=== PATIENT | male | born 1950 | race Caucasian/White ===

== ENCOUNTER 2019-11-27 13:48 | Outpatient (CLI) | payer MEDICARE | END 2019-11-27 13:49 | disposition home or self-care (01) | LOC: RT 13:48 | PROVIDERS: ATTEND Internal Medicine Cardiovascular Disease | DX: R00.0 Tachycardia, unspecified (principal) | CPT/HCPCS: 93005 ==

== ENCOUNTER 2024-03-22 06:33 | Outpatient (CLI) | payer MEDICARE | END 2024-03-22 23:59 | disposition critical access hospital (66) | LOC: EMS 06:33 | DX: R58 Hemorrhage, not elsewhere classified (principal); Z79.01 Long term (current) use of anticoagulants | CPT/HCPCS: A0425; A0429 ==

== ENCOUNTER 2024-03-22 07:01 | Emergency (ER) | payer BC, MEDICARE ==
[2024-03-22] MEDS: TRANEXAMIC ACID 1,000 MG/10 ML VIAL NAS STA (07:16)
--- NOTE | 2024-03-22 07:33 | ED Physician Documentation ---
History of Present Illness - Stated complaint Stated Complaint: BLEEDING SUTURES - Chief complaint Chief Complaint: Laceration - History obtained from History obtained from: Patient, Family - History of Present Illness Timing: Today - Additonal information Additional information: Jack Rod is a 73-year-old male with a history of hypertension and atrial fibrillation who is on Xarelto. 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 He had his sutures removed a week ago and he developed some swelling which resulted this morning in bleeding coming from 1 portion of the wound. He is continuing to have bleeding and is brought to the hospital by ambulance. Review of Systems Constitutional: denies: Fever Nose: denies: Congestion Throat: denies: Sore throat Respiratory: denies: Cough GI: denies: Vomiting, Diarrhea Skin: reports: Laceration (s) Musculoskeletal: denies: Neck pain, Back pain, Extremity pain PD PAST MEDICAL HISTORY - Past Medical History Past Medical History: Yes Cardiovascular: Hypertension, Atrial fibrillation Respiratory: None Neuro: None Endocrine/Autoimmune: None GI: None : None HEENT: None Psych: None Musculoskeletal: None Derm: None Other Past Medical History: skin cancer - Past Surgical History Past Surgical History: Yes Cardiovascular: Other - Present Medications Home Medications: Ambulatory Orders Medication Instructions Recorded Confirmed Flecainide [Tambocar] 50 mg PO DAILY 03/22/24 03/22/24 Lisinopril [Zestril] 20 mg PO DAILY 03/22/24 03/22/24 Rivaroxaban [Xarelto] 10 mg PO DAILY 03/22/24 03/22/24 - Allergies Allergies/Adverse Reactions: Allergies Allergy/AdvReac Type Severity Reaction Status Date / Time No Known Drug Allergies Allergy Verified 03/22/24 07:12 - Social History Does the pt smoke?: No Smoking Status: Never smoker Does the pt drink ETOH?: No Does the pt have substance abuse?: No - Immunizations Immunizations are current?: Yes - POLST Patient has POLST: No PD ED PE NORMAL - Vitals Vital signs reviewed: Yes (hypertensive ) - General General: Alert and oriented X 3, No acute distress, Well developed/nourished - HEENT HEENT: PERRL, EOMI, Other (There is a recent surgical site on the left forehead at the hairline that appears well healed with the exception of the upper portion of the wound which is oozing blood. Pressure applied cephalad from the wound resolves bleeding. ) - Neck Neck: Supple, no meningeal sign - Respiratory Respiratory: No respiratory distress - Derm Derm: Normal color, Warm and dry, No rash - Extremities Extremities: No deformity, No edema - Neuro Neuro: Alert and oriented X 3, ore sampler 2-12 intact, No motor deficit, No sensory deficit, Normal speech Eye Opening: Spontaneous Motor: Obeys Commands Verbal: Oriented GCS Score: 15 - Psych Psych: Normal mood, Normal affect Results - Vitals Vitals: Vital Signs - 24 hr 03/22/24 03/22/24 07:08 08:31 Temperature 36.9 C Heart Rate 76 68 Respiratory 18 20 Rate Blood Pressure 171/81 H 161/81 H O2 Saturation 98 100 Oxygen O2 Source Room air Procedures - Laceration (location) forehead Length in cm: 1 Wound type: Clean, Other (wound margin) Neurovascular status: Sensory intact, Motor intact, Vascular intact Anesthesia: Lidocaine 1% Wound preparation: Hibiclens, Irrigated copiously NS Skin layer closure: Nylon, Interrupted, Size #-0 - enter number (5-0), Sutures - enter # (2), Other (sutures placed above the terminus of the surgical wound controlled bleeding a second suture placed over the open portion of the distal wound.) Other: Patient tolerated well, No complications, Neurovascular intact, Tetanus UTD PD Medical Decision Making - ED course Complexity details: re-evaluated patient, considered differential, d/w patient, d/w family ED course: Jack Rod presented to our emergency department with bleeding from a recent surgical wound. We were able to identify an area above the wound that appeared to control the bleeding and sutures were placed through that area and tightened. This appears to have controlled the bleeding. Departure - Departure Disposition: 01 Home, Self Care Clinical Impression: Postoperative wound hemorrhage Condition: Stable Instructions: ED Wound Check Post Op Bleeding Follow-Up: Edd Kaminski MD [Primary Care Provider] - Comments: Jack, today it looks like we were able to control the bleeding to this wound by placing a suture just above where the surgical wound ends. My recommendation today is to not take your blood thinner and we are expecting the bleeding to be controlled. These sutures will need to be removed within the week. You can follow-up here or with your primary care doctor. 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 Discharge Date/Time: 03/22/24 08:33
[2024-03-22] MEDS: LIDOCAINE 1% 2 ML VIAL SUBQ STA (07:50)
[2024-03-22 08:42] VITALS: BP 161/81; O2SAT 100
== END 2024-03-22 08:33 | disposition home or self-care (01) ==
LOC: EDUNIT# → ED 07:01
DX: L76.22 Postprocedural hemorrhage of skin and subcutaneous tissue following other procedure (principal)
CPT/HCPCS: 12001; 99283